=== PATIENT | female | born 1990 | race Caucasian/White ===

== ENCOUNTER 2024-01-06 00:23 | Emergency (ER) | payer SELFPAY ==
[2024-01-06] VITALS (7 sets, daily range): BP systolic 102–131; BP diastolic 77–98; PULSE 60–80; RESP 16–21; TEMP 36.1–36.9; O2SAT 95–98; BMI 32.8
--- NOTE | 2024-01-06 00:29 | EKG12_ITS ---
Test Reason : CP Blood Pressure : / mmHG Vent. Rate : 075 BPM Atrial Rate : 075 BPM P-R Int : 154 ms QRS Dur : 094 ms QT Int : 400 ms P-R-T Axes : 029 048 037 degrees QTc Int : 446 ms Normal sinus rhythm Normal ECG Confirmed by Vinod Ng [id number]), online editor NETO BAZAN ([id number]) on 01/07/2024 12:58:11 PM Referred By: MED Confirmed By:Vinod Ng
--- NOTE | 2024-01-06 00:45 | RAD_ITS ---
INDICATION: chest pain EXAMINATION/TECHNIQUE: X-RAY - XR Chest 1 View COMPARISON: None. Findings: Single frontal view of the chest. LUNG PARENCHYMA: No acute focal airspace disease or mass lesion. PLEURA: No pleural effusion. No pneumothorax. HEART/GREAT VESSELS: Cardiomediastinal silhouette is unremarkable. BONES: Osseous structures are unremarkable for age. RAD/Chest 1 View (Portable) IMPRESSION: Chest with no acute disease. Electronically Signed: Hamzah Crockett MD at 1:29 EDT ,
[2024-01-06 00:47] LABS: Absolute Lymphocyte Count 3.48 X10^3/uL (0.83-4.51); Absolute Neutrophil Count 3.5 X10^3/uL (2.0-7.7); Basophil# 0.08 X10^3/uL; Eosinophils% 3.7 % (0-5); Lymphocyte # 3.48 X10^3/ul (0.83-4.51); Lymphocyte % 43.2 % (19-41); Mean Corp Hgb Conc 32.5 g/dL (32-36); Mean Corpuscular Hgb 30.2 pg (27.0-32.0); Mean Platelet Vol. 11.1 fl (6.2-12.0); Monocyte# 0.64 X10^3/uL; NRBC Flagged by Analyzer 0 % (0-5); Neutrophil # 3.52 X10^3/uL (2.7-7.7); Neutrophil % 43.7 % (47-70); Platelet Count 244 K/mm3 (150-450); RBC Distribution Width CV 13.6 % (11.6-14.6); RBC Distribution Width SD 46.3 fl (35.1-43.9); White Blood Count 8.1 K/mm3 (4.4-11.0)
--- NOTE | 2024-01-06 01:01 | CT_ITS ---
INDICATION: syncope EXAMINATION: CT BRAIN - CT Head or Brain W/O Contrast Injection TECHNIQUE: Serial CT axial images were obtained of the head without intravenous contrast. A radiation dose optimization technique was used for this scan. COMPARISON: None. Findings: Serial CT axial images of the head without contrast. BRAIN PARENCHYMA: Normal britton-white matter differentiation. No evidence of intraparenchymal hemorrhage or hyperattenuating extra-axial fluid collection. BONES: Paranasal sinuses are clear. SCALP/REMAINING SOFT TISSUES: Unremarkable. ASPECTS Score for Acute Strokes, if applicable: 10 CT/Brain/Head without Contrast IMPRESSION: No acute intracranial hemorrhage in this noncontrast head CT. Electronically Signed: Hamzah Crockett MD at 2:28 EDT ,
[2024-01-06 01:14] LABS: Anion Gap 7 (5-15); BUN 18 mg/dL (7-18); BUN/Creat Ratio 22.8 RATIO (10-20); Calcium,Total 9.3 mg/dL (8.5-10.1); Chloride 108 mmol/L (98-107); Creatinine, Serum 0.79 mg/dL (0.55-1.02); EST Glomerular Filtration Rate 88 mL/min (>60); Est Glom Filt Rate - Afr Amer 107 mL/min (>60); Estimated Creatinine Clearance 98.19 ml/min; Glucose 98 mg/dL (74-106); Potassium 3.4 mmol/L (3.5-5.1); Sodium Level 140 mmol/L (136-145); Troponin-I HS (w/2H Reflex) < 3 pg/mL (3.0-54.0)
[2024-01-06 01:38] LABS: Mucous, Urine 0 SEEN /hpf (<or=2+); Red Blood Cells-Urine 0 SEEN /hpf (0-5); White Blood Cells 0 SEEN /hpf (0-5)
[2024-01-06 01:43] LABS: Glucose, Dipstick Normal (Normal); Ketone-Dipstick Negative (Negative); Leukocyte Esterase-Dipstick Negative /ul (Negative); Nitrite-Dipstick Negative (Negative); Occult Blood-Urine Negative /ul (Negative); Protein-Dipstick Negative (Negative); Urine Bilirubin Dipstick Negative (Negative); Urine Urobilinogen Normal (Normal)
[2024-01-06 01:48] LABS: Internal QC Validated? YES +Cl - CLEAR BKGD; Pregnancy, Urine Negative Negative; Record Kit Lot#,Urine Preg 718089
[2024-01-06 01:53] LABS: Bacteria RARE /hpf (None Seen); Color, Urine Yellow (Yellow); Squamous Epithelial Cells - UA 0-5 SEEN /hpf (5-10); Urine Clarity Clear (Clear)
[2024-01-06 01:54] LABS: Magnesium 1.9 mg/dL (1.6-2.6)
[2024-01-06 02:15] LABS: Lactic Acid 1.1 mmol/L (0.4-1.9)
[2024-01-06 02:39] LABS: Reflex Troponin-HS? (from REC) Y
[2024-01-06 02:41] LABS: D-Dimer Quantitative (DVT/PE) 0.39 FEU/ug/m (0.27-0.49)
--- NOTE | 2024-01-06 03:04 | EX.ED.DYSGE1 ---
HPI History of Present Illness Chief Complaint: Chest Pain Informant: patient and friend Narrative Narrative: Patient is 33-year-old female who states that this evening she woke up felt nauseous and had bouts of dry heaving and the next thing she remembers is waking up. There was concern for syncope and since that time patient's had vague chest discomfort. She denies any history of seizure activity or known seizure disorder. She states has been no recent surgery and she denies any history of DVT/PE. He states symptoms like this have occurred in the past without any obvious diagnosis. She denies any illicit drug use or family history of cardiac disease at a young age. She also denies any family history of cardiac dysrhythmia. However with concern this could be cardiac in nature she was brought in for evaluation [facility] Medical History (Updated 01/06/24 @ 03:[address] Yariel Hays, ) Lyme disease Home Medications ?Medication ?Instructions ?Recorded ?Last Taken ?Type NK 01/06/24 Unknown History Allergy/AdvReac Type Severity Reaction Status Date / Time No Known Allergies Allergy Verified 01/06/24 00:23 Social History Smoking Status: Never smoker [facility] ED Constitutional Constitutional ED: Denies chills or fever(s) Eyes Eyes: Denies blurry vision or change in vision ENT ENT ED: Denies sore throat Cardiovascular Cardiovascular: Reports chest pain; Denies palpitations or racing heartbeat Respiratory/Chest Respiratory/Chest: Denies cough or dyspnea Gastrointestinal Gastrointestinal: Reports constipation and nausea; Denies abdominal pain, diarrhea or vomiting Genitourinary Genitourinary ED: Denies dysuria Musculoskeletal Musculoskeletal: Denies myalgias Integumentary Denies rash Neurologic Neurologic: Reports other Details: Positive syncope ; Denies headache(s) Hematologic/Lymphatic Hematologic/Lymphatic: Denies easy bleeding or easy bruising EXAM Physical Exam Const Vital Signs: 01/06/24 00:24 01/06/24 00:29 01/06/24 01:23 Temperature 98.4 F Temperature Source Temporal Pulse Rate 80 80 Pulse Rate [Lying] Pulse Rate [Sitting (for 1 minute prior to obtaining)] Pulse Rate [Standing (for 1 minute prior to obtaining)] Respiratory Rate 16 21 H Blood Pressure 102/80 131/98 H Blood Pressure [Lying] Blood Pressure [Sitting (for 1 minute prior to obtaining)] Blood Pressure [Standing (for 1 minute prior to obtaining)] Blood Pressure Mean 87 109 Blood Pressure Mean [Lying] Blood Pressure Mean [Sitting (for 1 minute prior to obtaining)] Blood Pressure Mean [Standing (for 1 minute prior to obtaining)] Pulse Ox 95 98 98 Oxygen Delivery Method Nasal Cannula Room Air Oxygen Flow Rate (L/min) 2 01/06/24 01:32 01/06/24 02:00 Temperature Temperature Source Pulse Rate 60 Pulse Rate [Lying] 67 Pulse Rate [Sitting (for 1 minute prior to obtaining)] 74 Pulse Rate [Standing (for 1 minute prior to obtaining)] 75 Respiratory Rate 16 Blood Pressure 123/77 H Blood Pressure [Lying] 130/78 H Blood Pressure [Sitting (for 1 minute prior to obtaining)] 129/85 H Blood Pressure [Standing (for 1 minute prior to obtaining)] 131/98 H Blood Pressure Mean 92 Blood Pressure Mean [Lying] 95 Blood Pressure Mean [Sitting (for 1 minute prior to obtaining)] 99 Blood Pressure Mean [Standing (for 1 minute prior to obtaining)] 109 Pulse Ox 96 Oxygen Delivery Method Room Air Oxygen Flow Rate (L/min) Positive well nourished and well developed General Appearance ED: well developed; Negative for pallor HEENT Reports moist mucous membranes HEENT Narrative: Normocephalic atraumatic No tongue or cheek biting noted No secondary findings to suggest infection in the posterior pharynx Eyes PERRL and EOMs intact bilaterally General Eye ED: Negative for scleral icterus Neck supple Neck Narrative: No nuchal rigidity or meningeal signs No bony deformity or step-off of the cervical spine no midline tenderness to palpation Chest Wall palpation of chest normal Chest Narrative: No bony deformity or crepitance of the chest wall Resp normal respiratory effort and clear to auscultation bilaterally Cardio regular rate and regular rhythm Rate: other Other Details: Heart is regular rate and rhythm without murmurs rubs or gallops Radial and carotid pulses are equal and symmetric There is an occasional ectopic beat noted GI normal to inspection, nondistended, normoactive bowel sounds, non-tender, non-distended and no masses GI Narrative: No voluntary guarding or rigidity or pulsatile mass Auscultation: normoactive bowel sounds Palpation: soft Extremity Extremity Narrative: No asymmetric edema no pitting edema negative Homans' sign bilaterally Patient has chronic deformity of her left arm Neuro oriented x3, CN's II-XII intact bilaterally and no sensory deficits noted Neuro Narrative: Cranial nerves II through XII are grossly intact without focal neurologic deficit NIH stroke scale score of 0 Sensorium / Orientation: alert Motor Exam: strength 5/5 throughout Psych Psych Narrative: Patient has a nervous/anxious affect Skin no rashes or lesions noted and no wounds General Skin Exam: Negative for jaundice or pallor MDM MDM MDM Narrative Medical decision making narrative: Patient arrived to the ER with stable vitals and a nonfocal exam. She reported a episode of nausea with potential vomiting/dry heaves and syncopal event. There is no reported seizure activity or history of seizure disorder. As differential diagnosis is for vasovagal syncope versus spontaneous brain bleed such as subarachnoid or subdural hemorrhage versus acute coronary syndrome versus cardiac dysrhythmia versus potential DVT/PE I did elect to perform basic laboratory studies as well as noncontrast head CT. Head CT revealed no signs of acute bleed or trauma and chest x-ray revealed no acute lung pathology. Laboratory studies revealed a troponin less than 3 going against acute coronary syndrome and D-dimer is also normal going against PE/DVT and or dissection. There is also no electrolyte abnormalities such as hyponatremia or acute blood loss anemia as a cause of her symptoms. The patient did have an occasional PVC but there was no true cardiac dysrhythmia noted. Therefore at this time with stable vitals and overall negative workup she can be discharged and follow-up on an outpatient basis History & Record Review Discussion w/independent historian: Patient and Family Lab Data Attestation: I reviewed the patient's lab results. Labs: Laboratory Results - last 24 hr 01/05/24 01/06/24 01/06/24 23:55 01:25 02:25 WBC 8.1 RBC 4.30 Hgb 13.0 Hct 40.0 MCV 93.0 MCH 30.2 MCHC 32.5 RDW Std Deviation 46.3 H RDW Coeff of Kacy 13.6 Plt Count 244 MPV 11.1 Immature Gran % (Auto) 0.400 Neut % (Auto) 43.7 L Lymph % (Auto) 43.2 H [place] % (Auto) 8.0 Eos % (Auto) 3.7 Baso % (Auto) 1.0 Absolute Neuts (auto) 3.5 Absolute Lymphs (auto) 3.48 Nucleated RBC % 0 D-Dimer Quant (PE/DVT) 0.39 Sodium 140 Potassium 3.4 L Chloride 108 H Carbon Dioxide 25.0 Anion Gap 7 BUN 18 Creatinine 0.79 Estim Creat Clear Calc 98.19 Est GFR (MDRD) Af Amer 107 Est GFR (MDRD) Non-Af 88 BUN/Creatinine Ratio 22.8 H Glucose 98 Lactic Acid 1.1 Calcium 9.3 Magnesium 1.9 Troponin I High Sens < 3 L Urine Color Yellow Urine Clarity Clear Urine pH 7.0 Ur Specific [place] 1.010 Urine Protein Negative Urine Glucose (UA) Normal Urine Ketones Negative Urine Occult Blood Negative Urine Nitrite Negative Urine Bilirubin Negative Urine Urobilinogen Normal Ur Leukocyte Esterase Negative Urine RBC 0 SEEN Urine WBC 0 SEEN Ur Squamous Epith Cells 0-5 SEEN Urine Bacteria RARE Urine Mucus 0 SEEN Urine Test Negative Radiography Diagnostic Testing: Clinical Impression(s) from Imaging Studies Chest X-Ray 01/06/24 00:45 IMPRESSION: Chest with no acute disease. Electronically Signed: Hamzah Crockett MD at 1:29 EDT , Brain CT 01/06/24 01:01 IMPRESSION: No acute intracranial hemorrhage in this noncontrast head CT. Electronically Signed: Hamzah Crockett MD at 2:28 EDT , Chest x-ray as interpreted by the emergency medicine physician reveals no acute infiltrate pneumothorax or pleural effusion Discharge Plan Triage Chief Complaint: Chest Pain ED Provider: Yariel Hays Dx/Rx/DC Orders Clinical Impression: Nonspecific chest pain, Syncope, PVC (premature ventricular contraction) Instructions: Dizziness Fainting Causes, PVCs, ED Chest Pain, Uncertain Cause Prescriptions: No Action NK Primary Care Provider: NOT,DEFINED Referrals: Marta Smith DO [Med Staff - Active Staff] - NOT,DEFINED [Primary Care Provider] - Activity Restrictions/Additional Instructions: Please follow-up with your family doctor to discuss further outpatient tests or and/or referral if symptoms persist and return to the ER should you have any further concerns Print Language: Malay Disposition Disposition: Home, Self Care Discharge Date/Time: 01/06/24 03:19
[2024-01-06 03:22] LABS: Troponin-I HS < 3 pg/mL (3.0-54.0)
== END 2024-01-06 03:19 | disposition home or self-care (01) ==
PROVIDERS: Emergency Provider Emergency Medicine; Visit Provider Emergency Medicine
DX: R07.89 Other chest pain (principal); R55 Syncope and collapse; I49.3 Ventricular premature depolarization; R11.10 Vomiting, unspecified
CPT/HCPCS: 70450; 71045; 80048; 81001; 81025; 83605; 83735; 84484; 85025; 85379; 93005; 99285; A4216